=== PATIENT | male | born 1955 | race African-American/Black ===

== ENCOUNTER → 2017-04-14 | Outpatient (CLI) | payer BC ==
[~2017-04-14] VITALS: Ht 165.1 cm; Wt 82.1 kg
[~2017-04-14] MED LIST: ADENOSINE 69 MG in GIVE UN-DILUTED 0 ML IV ONE; ADENOSINE 90 MG/30 ML INJ IV ONE; AML5T PO; ASP325EC PO; CLON0.1T PO; FINA5TAB4 PO; INSLANTI SC; LABE100T PO; LISI-33 PO; LOSA100T22 PO; METF-372 PO; POTA20TA53 PO; PRAS10TA6 PO; RANI-185 PO; ROSU20TA14 PO; TAM04C PO
== END | disposition home or self-care (01) ==
LOC: Rad HDHVI 13:59
PROVIDERS: ATTEND Internal Medicine Cardiovascular Disease
DX: I10 Essential (primary) hypertension (principal); I25.10 Atherosclerotic heart disease of native coronary artery without angina pectoris; I25.2 Old myocardial infarction; E78.00 Pure hypercholesterolemia, unspecified; R53.81 Other malaise
CPT/HCPCS: 78452; 93005; 96374; 96375; A9500; J0153

== ENCOUNTER → 2018-09-12 | Outpatient (CLI) | payer BC, MEDICARE ==
[~2018-09-12] MED LIST changes: -ADENOSINE 69 MG in GIVE UN-DILUTED 0 ML IV ONE; -ADENOSINE 90 MG/30 ML INJ IV ONE; +FLUT1INH6 IN; +INSDRIP SC; +INSU1INJ19 SC; -LABE100T PO; +LABE100T4 PO; +LINA5TAB PO; +NITR0.4S29 SL; +RANO500T2 PO
[2018-09-12 09:18] VITALS: BP 151/111
[2018-09-12 09:49] VITALS: BP 148/100
[2018-09-12 12:04] LABS: Basophils # (auto) 0.1 uL; Basophils % (auto) 0.8 % (0.0-2.0); Eosinophils # (auto) 0.1 uL; Hematocrit 46.9 % (41.0-53.0); Hemoglobin 15.7 g/dL (13.5-17.5); Lymphocytes # (auto) 2.2 uL; Lymphocytes % (auto) 25.5 % (10.0-50.0); Mean Corpuscular Hemoglobin 31.6 pg (28.0-32.0); Mean Corpuscular Hgb Conc. 33.4 g/dL (32.0-36.0); Mean Corpuscular Volume 94.6 fL (80.0-100.0); Monocytes % (auto) 11.4 % (0.0-12.0); Neutrophils # (auto) 5.4 uL; Neutrophils % (auto) 61.3 % (37.0-80.0); Nucleated Red Blood Cells % 0.5 %; Platelet Count (auto) 365 10^3/uL (140-450); Red Blood Cells 4.96 10^6/uL (4.5-5.90); Red Cell Distribution Width 14.2 % (11.8-14.3); White Blood Cell 8.8 10^3/uL (4.4-10.8)
[2018-09-12 12:16] LABS: INR 0.99 (0.9-1.15); Partial Thromboplastin Time 29.6 sec (23.78-33.04); Prothrombin Time 10.6 sec (9.27-12.13)
[2018-09-12 12:18] LABS: BUN/Creatinine Ratio 13.1; Calcium 9.2 mg/dL (8.5-10.1)
== END | disposition home or self-care (01) ==
LOC: Rad HDHVI 09:06
PROVIDERS: ATTEND Internal Medicine Cardiovascular Disease
DX: Z01.818 Encounter for other preprocedural examination (principal); I70.0 Atherosclerosis of aorta; A69.29 Other conditions associated with Lyme disease; D64.9 Anemia, unspecified; R79.1 Abnormal coagulation profile; I10 Essential (primary) hypertension
CPT/HCPCS: 36415; 71046; 80048; 85025; 85610; 85730; 93005; G0463

== ENCOUNTER 2018-09-25 12:04 | Inpatient (IN) | payer BC, MEDICARE ==
[~2018-09-25] VITALS: Ht 157.5 cm; Wt 86.6 kg
[2018-09-25] MEDS: FINASTERIDE 5 MG TAB PO SCH (10:00)
[~2018-09-25 12:04] MED LIST changes: -INSLANTI SC; -ROSU20TA14 PO
[2018-09-25] MEDS ORDERED: ANGIOMAX 250 MG VIAL IV ONE (13:27)
[2018-09-25] MEDS ORDERED: SODIUM CHL 0.9% 50 ML ONE (13:27)
[2018-09-25] MEDS ORDERED: fentaNYL CITRATE 100 MCG/2 ML VL ONE (13:27)
[2018-09-25] MEDS ORDERED: MIDAZOLAM HCL 1MG/1ML-2 ML VIAL ONE (13:27)
[2018-09-25] MEDS ORDERED: ASPirin 81 mg TAB ONE (14:26)
[2018-09-25] MEDS ORDERED: SODIUM CHLORIDE 0.9% 1,000 ML IV SCH (14:43)
[2018-09-25] MEDS ORDERED: MORPHINE SULFATE 4 MG/ML SYR/VIAL IV PRN (14:45)
[2018-09-25] MEDS ORDERED: hydrALAZINE HCL 20 MG/ML VL IV PRN (14:45)
[2018-09-25] MEDS ORDERED: HYDROcodone-ACET 5/325MG TAB PO PRN (14:45)
[2018-09-25] MEDS ORDERED: NITROGLYCERIN 0.4 MG SL TAB SL PRN (14:45)
[2018-09-25] MEDS ORDERED: ACETAMINOPHEN 500 MG TAB PO PRN (14:45)
[2018-09-25] MEDS ORDERED: DEXTROSE (50%) 50ML SYRG IV PRN (14:45)
[2018-09-25] MEDS ORDERED: LOSARTAN POTASSIUM 50 MG TAB PO ONE (15:15)
[2018-09-25] MEDS ORDERED: FAMOTIDINE 20 MG TAB PO ONE (15:15)
[2018-09-25] MEDS ORDERED: ZOLPIDEM TARTRATE 5 MG TAB PO PRN (15:15)
[2018-09-25] MEDS ORDERED: ASPirin-EC 325mg tab PO ONE (15:15)
[2018-09-25] MEDS ORDERED: amLODIPine BESYLATE 5 MG TAB PO ONE (15:15)
[2018-09-25] MEDS ORDERED: RANOLAZINE ER 500 MG TAB PO ONE (15:15)
[2018-09-25] MEDS ORDERED: cloNIDine HCL 0.1 MG TAB PO ONE (15:15)
[2018-09-25] MEDS: ACCU-CHEK COMFORT CURVE STRIP VI SCH ×2 (17:00→21:50)
[2018-09-25] MEDS: InsuLIN REG 1unit/0.01ml Soln (100units/ml) SC SCH (17:48)
[2018-09-25] MEDS: LABETALOL HCL 200 MG TAB PO SCH ×2 (17:49→21:46)
[2018-09-25] MEDS: RANOLAZINE ER 500 MG TAB PO SCH (21:45)
[2018-09-25] MEDS: FAMOTIDINE 20 MG TAB PO SCH (21:46)
[2018-09-25 22:00] VITALS: BP 146/84
[2018-09-25] MEDS ORDERED: InsuLIN REG 1unit/0.01ml Soln (100units/ml) SC SCH (22:00)
[2018-09-25] MEDS ORDERED: INSULIN LANTUS (GLARGINE) 1 /0.01ml (100units/ml) SC SCH (22:00)
[2018-09-25] MEDS ORDERED: TAMSULOSIN HYDROCHLORIDE 0.4 MG CAP PO SCH (22:00)
[2018-09-26 05:00] VITALS: BP 150/91
[2018-09-26] MEDS: LABETALOL HCL 200 MG TAB PO SCH ×2 (05:52→14:00)
[2018-09-26] MEDS: InsuLIN REG 1unit/0.01ml Soln (100units/ml) SC SCH ×3 (06:02→17:00)
[2018-09-26] MEDS: ACCU-CHEK COMFORT CURVE STRIP VI SCH ×3 (06:03→17:00)
[2018-09-26] MEDS ORDERED: VILANTEROL IN SCH (07:00)
[2018-09-26] MEDS ORDERED: FLUTICASONE FUROATE IN SCH (07:00)
[2018-09-26 07:17] LABS: Basophils # (auto) 0.1 uL; Eosinophils # (auto) 0.1 uL; Eosinophils % (auto) 1.5 % (0.0-7.0); Hemoglobin 14.4 g/dL (13.5-17.5); Lymphocytes # (auto) 2.3 uL; Lymphocytes % (auto) 30.2 % (10.0-50.0); Mean Corpuscular Hgb Conc. 34.3 g/dL (32.0-36.0); Mean Corpuscular Volume 93.2 fL (80.0-100.0); Monocytes % (auto) 12.7 % (0.0-12.0); Neutrophils # (auto) 4.2 uL; Neutrophils % (auto) 54.6 % (37.0-80.0); Nucleated Red Blood Cells % 0.2 %; Platelet Count (auto) 243 10^3/uL (140-450); Red Cell Distribution Width 14.1 % (11.8-14.3); White Blood Cell 7.6 10^3/uL (4.4-10.8)
[2018-09-26 07:26] LABS: BUN/Creatinine Ratio 11.5; Calcium 8.3 mg/dL (8.5-10.1); Potassium 3.9 mmol/L (3.5-5.1)
[2018-09-26] MEDS: FAMOTIDINE 20 MG TAB PO SCH (08:42)
[2018-09-26] MEDS: FINASTERIDE 5 MG TAB PO SCH (08:42)
[2018-09-26 09:00] VITALS: BP 160/94
[2018-09-26] MEDS ORDERED: amLODIPine BESYLATE 5 MG TAB PO SCH (10:00)
[2018-09-26] MEDS: RANOLAZINE ER 500 MG TAB PO SCH (10:00)
[2018-09-26] MEDS ORDERED: LOSARTAN POTASSIUM 50 MG TAB PO SCH (10:00)
[2018-09-26] MEDS ORDERED: cloNIDine HCL 0.1 MG TAB PO SCH (10:00)
[2018-09-26] MEDS ORDERED: ASPirin-EC 325mg tab PO SCH (10:00)
[2018-09-26 13:00] VITALS: BP 160/92
[2018-09-26 17:00] VITALS: BP 159/96
== END 2018-09-26 18:45 | disposition home or self-care (01) | DRG 247 ==
LOC: CATH 12:04 → TELE-WESTW 17:04
PROVIDERS: ADMIT Internal Medicine Cardiovascular Disease; ATTEND Internal Medicine Cardiovascular Disease
PROC: 4A023N7 Measurement of Cardiac Sampling and Pressure, Left Heart, Percutaneous Approach (ICD-10-PCS; principal; 2018-09-26)
PROC: 027034Z Dilation of Coronary Artery, One Artery with Drug-eluting Intraluminal Device, Percutaneous Approach (ICD-10-PCS; 2018-09-26)
PROC: B2111ZZ Fluoroscopy of Multiple Coronary Arteries using Low Osmolar Contrast (ICD-10-PCS; 2018-09-26)
PROC: B2151ZZ Fluoroscopy of Left Heart using Low Osmolar Contrast (ICD-10-PCS; 2018-09-26)
DX: I25.110 Atherosclerotic heart disease of native coronary artery with unstable angina pectoris (principal); I10 Essential (primary) hypertension; Z82.49 Family history of ischemic heart disease and other diseases of the circulatory system; Z95.5 Presence of coronary angioplasty implant and graft
CPT/HCPCS: 36415; 80048; 82962; 85025; 99152; A6257; C1874; G0378; J1815; J2250

== ENCOUNTER → 2019-01-02 | Outpatient (CLI) | payer BC, MEDICARE ==
[~2019-01-02] MED LIST changes: -PRAS10TA6 PO
== END | disposition home or self-care (01) ==
LOC: Rad HDHVI 13:54
PROVIDERS: ATTEND Internal Medicine Cardiovascular Disease
DX: I07.1 Rheumatic tricuspid insufficiency (principal); I20.0 Unstable angina
CPT/HCPCS: 93306

== ENCOUNTER → 2019-01-08 | Outpatient (CLI) | payer BC, MEDICARE ==
[~2019-01-08] VITALS: Ht 162.6 cm; Wt 81.6 kg
[~2019-01-08] MED LIST changes: +ADENOSINE 69 MG in GIVE UN-DILUTED 0 ML IV ONE; +ADENOSINE 90 MG/30 ML INJ IV ONE
== END | disposition home or self-care (01) ==
LOC: Rad HDHVI 13:15
PROVIDERS: ATTEND Internal Medicine Cardiovascular Disease
DX: R07.89 Other chest pain (principal); E78.00 Pure hypercholesterolemia, unspecified; E11.9 Type 2 diabetes mellitus without complications; R06.02 Shortness of breath; Z79.899 Other long term (current) drug therapy
CPT/HCPCS: 78452; 93005; 96374; 96375; A9500; J0153

== ENCOUNTER → 2019-02-07 | Outpatient (CLI) | payer BC, MEDICARE ==
[~2019-02-07] MED LIST changes: -ADENOSINE 69 MG in GIVE UN-DILUTED 0 ML IV ONE; -ADENOSINE 90 MG/30 ML INJ IV ONE
== END | disposition home or self-care (01) ==
LOC: Rad HDHVI 14:56
PROVIDERS: ATTEND Internal Medicine Cardiovascular Disease
DX: M11.262 Other chondrocalcinosis, left knee (principal); M17.12 Unilateral primary osteoarthritis, left knee; I70.202 Unspecified atherosclerosis of native arteries of extremities, left leg; E11.9 Type 2 diabetes mellitus without complications; Z79.899 Other long term (current) drug therapy; Z88.8 Allergy status to other drugs, medicaments and biological substances
CPT/HCPCS: 73700

== ENCOUNTER → 2020-05-09 | Outpatient (CLI) | payer BC, MEDICARE ==
[~2020-05-09] MED LIST changes: +POTA-220 PO; -POTA20TA53 PO
== END | disposition home or self-care (01) ==
LOC: Rad HDHVI 13:42
PROVIDERS: ATTEND Internal Medicine Cardiovascular Disease
DX: I10 Essential (primary) hypertension (principal); I25.10 Atherosclerotic heart disease of native coronary artery without angina pectoris; E11.9 Type 2 diabetes mellitus without complications; R07.89 Other chest pain
CPT/HCPCS: 93306

== ENCOUNTER → 2020-07-02 | Outpatient (CLI) | payer BC, MEDICARE ==
[~2020-07-02] VITALS: Ht 160 cm; Wt 73.5 kg
== END | disposition home or self-care (01) ==
LOC: Rad HDHVI 12:41
PROVIDERS: ATTEND Internal Medicine Cardiovascular Disease
DX: I10 Essential (primary) hypertension (principal); E11.9 Type 2 diabetes mellitus without complications; E78.00 Pure hypercholesterolemia, unspecified; E78.5 Hyperlipidemia, unspecified; I25.2 Old myocardial infarction
CPT/HCPCS: 78452; 93017; 96374; A9500

== ENCOUNTER → 2020-08-14 | Outpatient (CLI) | payer BC, MEDICARE ==
[2020-08-14 12:00] LABS: Basophils # (auto) 0 10 ^3/uL (0-0.2); Basophils % (auto) 0.3 % (0.0-2.0); Eosinophils # (auto) 0.1 10 ^3/uL (0-0.8); Eosinophils % (auto) 0.6 % (0.0-7.0); Hematocrit 43.7 % (41.0-53.0); Hemoglobin 14.9 g/dL (13.5-17.5); Lymphocytes # (auto) 2.4 10 ^3/uL (0.4-5.4); Lymphocytes % (auto) 23.1 % (10.0-50.0); Mean Corpuscular Hemoglobin 33.3 pg (28.0-32.0); Monocytes # (auto) 1.2 10 ^3/uL (0-1.3); Monocytes % (auto) 11.3 % (0.0-12.0); Neutrophils # (auto) 6.6 10 ^3/uL (1.6-8.6); Neutrophils % (auto) 64.7 % (37.0-80.0); Platelet Count (auto) 370 10^3/uL (140-450); Red Blood Cells 4.46 10^6/uL (4.5-5.90); Red Cell Distribution Width 14.3 % (11.8-14.3); White Blood Cell 10.2 10^3/uL (4.4-10.8)
[2020-08-14 12:01] LABS: Urine Blood Negative /uL (Negative); Urine Specific Gravity 1.022 (1.001-1.035)
[2020-08-14 12:12] LABS: Albumin 3.6 g/dL (3.4-5.0); Potassium 3.9 mmol/L (3.5-5.1)
[2020-08-14 12:16] LABS: Free T4 (Free Thyroxine) 0.79 ng/dL (0.89-1.76)
[2020-08-14 12:17] LABS: Prostate Specific Antigen 0.9 ng/mL (0.0-4.0)
[2020-08-14 12:21] LABS: Bilirubin, Total 0.4 mg/dL (0.2-1.0); Calcium 9.4 mg/dL (8.5-10.1); Total Protein 7.6 g/dL (6.4-8.2)
== END | disposition home or self-care (01) ==
LOC: LAB 08:23
PROVIDERS: ATTEND Internal Medicine Cardiovascular Disease
DX: C61 Malignant neoplasm of prostate (principal); D51.3 Other dietary vitamin B12 deficiency anemia; D64.9 Anemia, unspecified; I10 Essential (primary) hypertension; E11.9 Type 2 diabetes mellitus without complications; E55.9 Vitamin D deficiency, unspecified; R00.2 Palpitations; R53.1 Weakness; R30.0 Dysuria
CPT/HCPCS: 36415; 80053; 80061; 81003; 82306; 82607; 83036; 84153; 84403; 84439; 84443; 85025

== ENCOUNTER 2021-03-23 16:25 | Emergency (ER) | payer BC, MEDICARE ==
[~2021-03-23] VITALS: Ht 160 cm; Wt 70.3 kg
[2021-03-23] MEDS ORDERED: SODIUM CHLORIDE 0.9% 1,000 ML IV ONE ×2 (16:45)
[2021-03-23 17:08] LABS: Basophils # (auto) 0.1 10 ^3/uL (0-0.2); Basophils % (auto) 0.7 % (0.0-2.0); Eosinophils # (auto) 0 10 ^3/uL (0-0.8); Eosinophils % (auto) 0.3 % (0.0-7.0); Hematocrit 41.1 % (41.0-53.0); Hemoglobin 13.8 g/dL (13.5-17.5); Lymphocytes # (auto) 1.7 10 ^3/uL (0.4-5.4); Lymphocytes % (auto) 15.6 % (10.0-50.0); Mean Corpuscular Hgb Conc. 33.7 g/dL (32.0-36.0); Monocytes # (auto) 1.3 10 ^3/uL (0-1.3); Monocytes % (auto) 11.6 % (0.0-12.0); Neutrophils % (auto) 71.8 % (37.0-80.0); Platelet Count (auto) 337 10^3/uL (140-450); Red Blood Cells 4.33 10^6/uL (4.5-5.90); Red Cell Distribution Width 14.2 % (11.8-14.3); White Blood Cell 11.2 10^3/uL (4.4-10.8)
[2021-03-23 17:24] LABS: Albumin 3.4 g/dL (3.4-5.0); BUN/Creatinine Ratio 16.3; Calcium 8.4 mg/dL (8.5-10.1); Potassium 3.4 mmol/L (3.5-5.1)
[2021-03-23 17:29] LABS: Bilirubin, Total 0.3 mg/dL (0.2-1.0); INR 1.02 (0.9-1.15); Partial Thromboplastin Time 23.8 sec (23.0-31.2)
[2021-03-23 20:42] LABS: Urine Bacteria NONE SEEN /hpf (None Seen); Urine Blood Negative /uL (Negative); Urine Hyaline Cast FEW /lpf (0 - 2); Urine Mucus FEW (None Seen); Urine Specific Gravity 1.013 (1.001-1.035); Urine WBC <1 /hpf (0 - 3)
[2021-03-23 21:00] VITALS: BP 148/85
[2021-03-23] MEDS ORDERED: POTASSIUM CHL 20 Meq TABLET PO ONE (21:15)
== END 2021-03-23 21:52 | disposition home or self-care (01) ==
LOC: EDBD 16:25 → ER 16:25
DX: R55 Syncope and collapse (principal); E86.0 Dehydration; R77.8 Other specified abnormalities of plasma proteins; I10 Essential (primary) hypertension; I25.2 Old myocardial infarction; I25.10 Atherosclerotic heart disease of native coronary artery without angina pectoris; F17.210 Nicotine dependence, cigarettes, uncomplicated; Z79.4 Long term (current) use of insulin; Z79.82 Long term (current) use of aspirin; Z79.899 Other long term (current) drug therapy
CPT/HCPCS: 36415; 70450; 71045; 80053; 81001; 84484; 85025; 85610; 85730; 87426; 93005; 96360; 96361; 99285; J7030

== ENCOUNTER → 2021-05-08 | Outpatient (CLI) | payer BC, MEDICARE | END | disposition home or self-care (01) | LOC: Rad HDHVI 09:51 | PROVIDERS: ATTEND Internal Medicine Cardiovascular Disease | DX: I10 Essential (primary) hypertension (principal); R06.02 Shortness of breath | CPT/HCPCS: 93306 ==

== ENCOUNTER → 2021-05-13 | Outpatient (CLI) | payer BC, MEDICARE | END | disposition home or self-care (01) | LOC: Rad HDHVI 10:09 | PROVIDERS: ATTEND Internal Medicine Cardiovascular Disease | DX: I65.23 Occlusion and stenosis of bilateral carotid arteries (principal); I10 Essential (primary) hypertension; E78.5 Hyperlipidemia, unspecified | CPT/HCPCS: 93880 ==

== ENCOUNTER → 2021-05-25 | Outpatient (CLI) | payer BC, MEDICARE ==
[~2021-05-25] VITALS: Ht 160 cm; Wt 69.4 kg
[~2021-05-25] MED LIST changes: +ADENOSINE 58 MG in GIVE UN-DILUTED 0 ML IV ONE; +ADENOSINE 90 MG/30 ML INJ IV ONE
[2021-05-25 14:00] LABS: Urine Blood Negative /uL (Negative); Urine Specific Gravity 1.025 (1.001-1.035)
[2021-05-25 14:35] LABS: Free T4 (Free Thyroxine) 0.89 ng/dL (0.89-1.76); Prostate Specific Antigen 0.82 ng/mL (0.0-4.0)
[2021-05-25 14:37] LABS: Potassium 3.6 mmol/L (3.5-5.1)
[2021-05-25 14:43] LABS: Basophils # (auto) 0 10 ^3/uL (0-0.2); Basophils % (auto) 0.3 % (0.0-2.0); Eosinophils # (auto) 0.1 10 ^3/uL (0-0.8); Eosinophils % (auto) 1.2 % (0.0-7.0); Hematocrit 42.5 % (41.0-53.0); Hemoglobin 14.5 g/dL (13.5-17.5); Lymphocytes # (auto) 1.9 10 ^3/uL (0.4-5.4); Mean Corpuscular Hemoglobin 32.8 pg (28.0-32.0); Mean Corpuscular Hgb Conc. 34.2 g/dL (32.0-36.0); Mean Corpuscular Volume 95.9 fL (80.0-100.0); Monocytes % (auto) 12.1 % (0.0-12.0); Neutrophils # (auto) 5.1 10 ^3/uL (1.6-8.6); Neutrophils % (auto) 63.4 % (37.0-80.0); Nucleated Red Blood Cells % 0.1 %; Red Blood Cells 4.43 10^6/uL (4.5-5.90); Red Cell Distribution Width 13.9 % (11.8-14.3); White Blood Cell 8.1 10^3/uL (4.4-10.8)
[2021-05-25 14:44] LABS: Albumin 3.6 g/dL (3.4-5.0); BUN/Creatinine Ratio 12.8; Bilirubin, Total 0.4 mg/dL (0.2-1.0); Calcium 9.3 mg/dL (8.5-10.1); Total Protein 7.9 g/dL (6.4-8.2)
== END | disposition home or self-care (01) ==
LOC: Rad HDHVI 08:40
PROVIDERS: ATTEND Internal Medicine Cardiovascular Disease
DX: C61 Malignant neoplasm of prostate (principal); I11.0 Hypertensive heart disease with heart failure; I50.33 Acute on chronic diastolic (congestive) heart failure; D51.3 Other dietary vitamin B12 deficiency anemia; E11.9 Type 2 diabetes mellitus without complications; E55.9 Vitamin D deficiency, unspecified; D64.9 Anemia, unspecified; R00.2 Palpitations; R53.1 Weakness; R30.0 Dysuria; E78.5 Hyperlipidemia, unspecified
CPT/HCPCS: 36415; 78452; 80053; 80061; 81003; 82306; 82607; 83036; 84153; 84403; 84439; 84443; 85025; 85049; 93005; 96374; 96375; A9500; J0153

== ENCOUNTER → 2022-05-12 | Outpatient (CLI) | payer BC, MEDICARE ==
[~2022-05-12] MED LIST changes: -ADENOSINE 58 MG in GIVE UN-DILUTED 0 ML IV ONE; -ADENOSINE 90 MG/30 ML INJ IV ONE
== END | disposition home or self-care (01) ==
LOC: Rad HDHVI 08:38
PROVIDERS: ATTEND Internal Medicine Cardiovascular Disease
DX: I35.8 Other nonrheumatic aortic valve disorders (principal); R06.02 Shortness of breath; I10 Essential (primary) hypertension
CPT/HCPCS: 93306

== ENCOUNTER → 2023-06-24 | Outpatient (CLI) | payer BC, MEDICARE ==
[~2023-06-24] MED LIST changes: +LOSA100T13 PO; -LOSA100T22 PO; -TAM04C PO; +TAMS-35 PO
== END | disposition home or self-care (01) ==
LOC: Rad HDHVI 08:54
PROVIDERS: ATTEND Internal Medicine Cardiovascular Disease
DX: I08.2 Rheumatic disorders of both aortic and tricuspid valves (principal); I11.9 Hypertensive heart disease without heart failure
CPT/HCPCS: 93306

== ENCOUNTER → 2023-07-25 | Outpatient (CLI) | payer BC, MEDICARE ==
[~2023-07-25] VITALS: Ht 160 cm; Wt 72.6 kg
[~2023-07-25] MED LIST changes: +ADENOSINE 61 MG in GIVE UN-DILUTED 0 ML IV ONE; +ADENOSINE 90 MG/30 ML INJ IV ONE
== END | disposition home or self-care (01) ==
LOC: Rad HDHVI 10:00
PROVIDERS: ATTEND Internal Medicine Cardiovascular Disease
DX: I10 Essential (primary) hypertension (principal); I20.0 Unstable angina; I25.2 Old myocardial infarction; E78.00 Pure hypercholesterolemia, unspecified; E11.21 Type 2 diabetes mellitus with diabetic nephropathy; Z95.1 Presence of aortocoronary bypass graft
CPT/HCPCS: 78452; 93005; 96374; 96375; A9500; J0153

== ENCOUNTER → 2024-06-26 | Outpatient (CLI) | payer BC ==
[~2024-06-26] MED LIST changes: -ADENOSINE 61 MG in GIVE UN-DILUTED 0 ML IV ONE; -ADENOSINE 90 MG/30 ML INJ IV ONE; -LABE100T4 PO; +LABE100T7 PO; -LOSA100T13 PO; +LOSA100T14 PO
== END | disposition home or self-care (01) ==
LOC: Rad HDHVI 08:04
PROVIDERS: ATTEND Internal Medicine Cardiovascular Disease
DX: I08.2 Rheumatic disorders of both aortic and tricuspid valves (principal); R42 Dizziness and giddiness
CPT/HCPCS: 93306

== ENCOUNTER → 2024-06-27 | Outpatient (CLI) | payer BC ==
[~2024-06-27] VITALS: Ht 162.6 cm; Wt 72.6 kg
[~2024-06-27] MED LIST changes: +D5W 5% IV ONE; +DIPYRIDAMOLE (5MG/ML) 10 ML VIAL IV ONE; +DIPYRIDAMOLE IV ONE
== END | disposition home or self-care (01) ==
LOC: Rad HDHVI 08:33
PROVIDERS: ATTEND Internal Medicine Cardiovascular Disease
DX: I10 Essential (primary) hypertension (principal); I42.0 Dilated cardiomyopathy; E11.9 Type 2 diabetes mellitus without complications; I51.7 Cardiomegaly; E78.00 Pure hypercholesterolemia, unspecified
CPT/HCPCS: 78452; 93005; 96374; 96375; A9500; J1245

== ENCOUNTER → 2024-12-05 | Outpatient (CLI) | payer BC, MEDICARE ==
[~2024-12-05] MED LIST changes: +AMLO1TAB22 PO; +ASPI1TAB20 PO; -D5W 5% IV ONE; +DAPA1TAB4 PO; -DIPYRIDAMOLE (5MG/ML) 10 ML VIAL IV ONE; -DIPYRIDAMOLE IV ONE; +ESOM20CA PO; +FLUT100I IN; +GABA-339 PO; +HEPARIN IN NS 1000Units/500mL 1,500 ML ONE; +INSLANTI SC; +IOHEXOL 350 MG/ML 100ML IJ ONE; +LOSA-535 PO; +PRAS10TA8 PO; +RANO500T3 PO; +ROSU10TA16 PO; +TAMS0.4C39 PO; +TIOT1AER IN; +ZOLP10TA PO
[2024-12-05 10:00] VITALS: BP 148/85; PULSE 81; RESP 16; O2SAT 97
[2024-12-05 10:11] VITALS: BP 148/79; PULSE 81; RESP 18; O2SAT 99
--- NOTE | 2024-12-05 11:40 | DVH ---
EXAM: XY CHEST TWO VIEWS ROUTINE CLINICAL HISTORY: pain COMPARISON: None TECHNIQUE: Frontal and lateral view of the chest was obtained FINDINGS: Lines and Tubes: None Lungs: No focal consolidation. Pleura: No effusion. No pneumothorax. Cardiomediastinal contours: Unremarkable. Atherosclerotic vascular calcifications of the thoracic aor ta are noted. Bones: No acute osseous abnormality. IMPRESSION: No acute cardiopulmonary disease.
== END | disposition home or self-care (01) ==
LOC: Rad HDHVI 09:56
PROVIDERS: ATTEND Internal Medicine Cardiovascular Disease
DX: Z01.818 Encounter for other preprocedural examination (principal); I70.0 Atherosclerosis of aorta; R07.9 Chest pain, unspecified
CPT/HCPCS: 71046; 93005; G0463

== ENCOUNTER 2024-12-06 08:51 | Day surgery (SDC) | payer BC, MEDICARE ==
[2024-12-05 12:26] LABS: Basophils # (auto) 0.1 10 ^3/uL (0-0.2); Basophils % (auto) 0.9 % (0.0-2.0); Eosinophils # (auto) 0.1 10 ^3/uL (0-0.8); Eosinophils % (auto) 0.6 % (0.0-7.0); Hematocrit 46.5 % (41.0-53.0); Hemoglobin 15.9 g/dL (13.5-17.5); Lymphocytes # (auto) 2.2 10 ^3/uL (0.4-5.4); Lymphocytes % (auto) 20.3 % (10.0-50.0); Mean Corpuscular Hgb Conc. 34.2 g/dL (32.0-36.0); Mean Corpuscular Volume 93.5 fL (80.0-100.0); Monocytes % (auto) 8.8 % (0.0-12.0); Neutrophils # (auto) 7.5 10 ^3/uL (1.6-8.6); Neutrophils % (auto) 69.4 % (37.0-80.0); Nucleated Red Blood Cells % 0.1 %; Platelet Count (auto) 252 10^3/uL (140-450); Red Blood Cells 4.97 10^6/uL (4.5-5.90); Red Cell Distribution Width 15.6 % (11.8-14.3); White Blood Cell 10.9 10^3/uL (4.4-10.8)
[2024-12-05 12:38] LABS: INR 1.04 (0.9-1.15); Partial Thromboplastin Time 28.6 SEC (24.5-34.5)
[2024-12-05 12:57] LABS: Chloride 105 mmol/L (98-107); Sodium 138 mmol/L (136-145)
[2024-12-05 12:58] LABS: Anion Gap 7 (5-15); Calcium 10.3 mg/dL (8.7-10.4); Carbon Dioxide 26 mmol/L (20-31)
[2024-12-05 13:03] LABS: Blood Urea Nitrogen 11 mg/dL (9-23); Glucose 94 mg/dL (74-106)
[2024-12-06] VITALS (9 sets, daily range): BP systolic 120–150; BP diastolic 77–88; PULSE 66–86; RESP 12–24; O2SAT 96–100
[~2024-12-06] VITALS: Ht 160 cm; Wt 76.7 kg
[~2024-12-06 08:51] MED LIST changes: -AML5T PO; -ASP325EC PO; -FLUT1INH6 IN; -HEPARIN IN NS 1000Units/500mL 1,500 ML ONE; -INSDRIP SC; -INSU1INJ19 SC; -IOHEXOL 350 MG/ML 100ML IJ ONE; -LISI-33 PO; -LOSA100T14 PO; -METF-372 PO; -POTA-220 PO; -RANI-185 PO; -RANO500T2 PO; -TAMS-35 PO
[2024-12-06] MEDS ORDERED: LIDOCAINE 2%HCL (LOCAL ANESTH.) INJ 20ML MDV ONE (09:37)
[2024-12-06] MEDS ORDERED: fentaNYL CITRATE 100 MCG/2 ML VL ONE (09:46)
[2024-12-06] MEDS ORDERED: ANGIOMAX 250 MG VIAL IV ONE ×2 (09:46→11:39)
[2024-12-06] MEDS ORDERED: MIDAZOLAM HCL 2MG/2ML 2ml VIAL (1mg/ml) ONE (09:47)
[2024-12-06] MEDS ORDERED: SODIUM CHL 0.9% 50 ML ONE ×2 (09:47→11:39)
[2024-12-06] MEDS ORDERED: NITROGLYCERIN 0.4MG/DOSE SPRAY 4.9GM ONE (10:54)
[2024-12-06] MEDS ORDERED: IOHEXOL 350 MG/ML 100ML IJ ONE (11:27)
[2024-12-06] MEDS ORDERED: CLOPIDOGREL BISULFATE 75 MG TAB ONE (11:54)
--- NOTE | 2024-12-06 12:12 | DVHOP ---
DATE OF SURGERY: 12/06/2024 PROCEDURES PERFORMED: * Selective left and right coronary angiography. * Ventriculogram. * Right iliac angiography. * Thrombectomy with shockwave treatment of the distal left anterior descending artery with stent placement, a 2.5 x 15 and a 2.5 x 8 mm Jonathon Cabell stent. * Angioplasty, shockwave thrombectomy of the obtuse marginal 1 with stent placement with a 2.5 x 12 mm Jonathon Cabell stent. There were no complications. The patient tolerated the procedure well. Conscious sedation was also given to the patient. DESCRIPTION OF PROCEDURE: The patient was prepped and draped in a sterile condition. Then, 1% Xylocaine used to anesthetize the right groin. Using a Cook needle, right femoral artery was engaged with Seldinger technique. A guidewire was positioned. Using a 6-Angolan sheath, it was introduced in the right femoral artery. Using 6-Angolan JL4 catheter and 6-Angolan JR4 catheter, selective left and right coronary angiographies were performed. Using 6-Angolan pigtail catheter, ventriculogram was done. Following the angiogram, the patient had a 6-Angolan diagnostic system exchanged for a 6-Angolan interventional system. Using an XB 3.5 guide catheter, left main was cannulated. Using a ChoICE PT extra support wire, the left anterior descending artery was crossed all the way into the distal portion just beyond the crux. The patient had high 95% narrowing of the distal LAD just distal to the previous stent placement. The lesion, because of tortuosity and calcification, was thrombectomized. Then, shockwave treatment with a 2.5 x 12 mm shockwave balloon. Then, 2 sequential stents were placed, 2.5 x 15 and a 2.5 x 8 mm stents were placed in the distal segment of the LAD just at the level of the crux. There were no complications. The patient tolerated the procedure well. Then, 2 run through wires were placed into the obtuse marginal 1. It had previous stent as well that was patent. However, distal to the stent, there was a 90% heavily calcified lesion. The patient underwent thrombectomy with shockwave treatment as well with a 2.5 x 12 mm shockwave balloon. Following the thrombectomy, the patient had deployment of 2.5 x 12 mm [place] Cabell stent. Two wires were placed to give additional support because of tortuosity of the circumflex. Once again, there were no complications. The patient tolerated the procedure well. RESULTS: * Left main distally had a 50% narrowing extending into the left anterior descending artery and the circumflex artery. The patient will require intervention in a staged manner with next procedure on him. * Left anterior descending artery had a proximal stent placement, which was patent, but distal LAD had a 95%-99% stenosis, status post angioplasty with thrombectomy with stent placement with a 2.5 x 15 and a 2.5 x 8 mm Jonathon stent. * Circumflex artery had previous stent placement, also was patent; however, distal to the stent placement, the patient had a 90% narrowing. Underwent successful angioplasty with stent placement. Remember, the left main extends into the circumflex and left anterior descending artery, both with greater than 60%-70% narrowing that will require kissing technique and angioplasty with stent placement of the left main at a later date. * Right coronary artery nondominant vessel. However, the stent placed in the proximal segment was patent, but the mid portion of the PDA, which has about a 2 mm vessel, has a 99% narrowing that will require intervention at a later date. Left ventricular function was preserved and estimated EF around 45%-50%. No change from previous angiogram or echocardiography with an LVEDP of 20 mmHg, with no gradient across the aortic valve. Thus, the patient underwent: * Complex intervention of the left anterior descending artery distally, with two stent placement with thrombectomy and shockwave treatment. * Angioplasty with stent placement of the obtuse marginal 1 distal to the previous stent. Once again complex intervention heavily calcified with less than 10% residual stenosis. * Right coronary artery, the PDA will require further intervention at a later date and the left main has a greater than 50% narrowing extending into the left anterior descending artery and the circumflex. EF was preserved with an LVEDP of 20 mmHg with an EF of 45%. Sumit Browning MD SA/MONICA TID: [id number] RECEIPT: [id number]
--- NOTE | 2024-12-06 12:37 | DVHDS ---
DATE OF DISCHARGE: 12/06/2024 HOSPITAL COURSE: The patient underwent complex intervention of the left anterior descending artery and circumflex arteries. Previous site of stent placements were patent. However, the patient will require further intervention of the left main extending into the LAD and circumflex as well as the PDA of the right coronary artery. Those procedures will be staged at a later date. Stable at the time of discharge. DISPOSITION: Home. ACTIVITY: As instructed. DIET: The patient will be maintained on dual antiplatelet therapy. He is to continue all home medications as well. Sumit Browning MD SA/GABBY TID: [id number] RECEIPT: [id number]
--- NOTE | 2024-12-06 12:38 | DVHHP ---
ADMIT DATE: 12/06/2024 HISTORY OF PRESENT ILLNESS: The patient is a 69-year-old with history of: * Diabetes, diabetic neuropathy, vasculopathy, nephropathy. * Remote history of tobacco use, discontinued smoking some 15 years ago. Strong family history of coronary artery disease. The patient with history of coronary artery disease, history of angioplasty with stent placement in the past with a PTCA to LAD. The stent placement PTCA circumflex obtuse marginal 1 with stent placement and RCA with stent placement. The patient with a circumflex dominant system. Now, the patient is having exertional chest pain. Shortness of breath. He also has severe peripheral neuropathy. Diabetic neuropathy as well. 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 He had a cardiac arrest/appears to be maybe even CVA at that time rather than cardiopulmonary arrest at this time and all symptoms improved afterwards. He denies any renal insufficiency at time. He only has diabetic nephropathy. Denies any syncopal episode recently. No melena, hematochezia, no hematemesis, hemoptysis. REVIEW OF SYSTEMS: Denies any hematuria as well. No history of any seizure disorders. No movement disorders. PHYSICAL EXAMINATION: VITAL SIGNS: Blood pressure is 168/72, pulse of 70, O2 saturation 98% on room air. HEENT: Pupils are reactive. Funduscopic exam shows no AV nicking, no exudates, no papilledema. Sclerae are anicteric. Extraocular muscles are intact. Oral mucosa moist. Posterior pharynx without any exudates. NECK: No JVD appreciated. Carotid pulses are 2+ symmetrical and normal upstroke and contour. No cervical adenopathy, no supraclavicular adenopathy. PULMONARY: Clear to auscultation. CARDIOVASCULAR: Regular rate without S3, without S4. PMI is not displaced. ABDOMEN: Soft, nontender, obese. Unable to appreciate organomegaly. EXTREMITIES: The patient has diffuse arthritic discomfort, arthritic changes. Has knee effusion bilaterally. NEUROLOGIC: However, the patient has normal focality to his examination. ASSESSMENT AND PLAN: Thus, the patient with now ongoing exertional chest pain even with minimal exertion. The patient with previous history of angioplasty with all 3 vessels had angioplasty done with stent placement. He has 3 stents, now having exertional chest pain. The patient is now to undergo coronary angiography to define coronary anatomy. Risks and benefits were explained to the patient. Sumit Browning MD SA/JOSE/DOMENICA/DEMETRIO TID: [id number] RECEIPT: [id number]
== END 2024-12-06 16:25 | disposition home or self-care (01) ==
LOC: CATH 08:51
PROVIDERS: ATTEND Internal Medicine Cardiovascular Disease
DX: R07.89 Other chest pain (principal); I25.10 Atherosclerotic heart disease of native coronary artery without angina pectoris; I25.84 Coronary atherosclerosis due to calcified coronary lesion; R06.02 Shortness of breath; R79.1 Abnormal coagulation profile; E11.42 Type 2 diabetes mellitus with diabetic polyneuropathy; E11.21 Type 2 diabetes mellitus with diabetic nephropathy; J44.9 Chronic obstructive pulmonary disease, unspecified; F41.9 Anxiety disorder, unspecified; F12.90 Cannabis use, unspecified, uncomplicated; Z79.82 Long term (current) use of aspirin; Z86.73 Personal history of transient ischemic attack (TIA), and cerebral infarction without residual deficits; Z87.891 Personal history of nicotine dependence; Z86.74 Personal history of sudden cardiac arrest; Z95.5 Presence of coronary angioplasty implant and graft; Z82.49 Family history of ischemic heart disease and other diseases of the circulatory system; Z83.3 Family history of diabetes mellitus
CPT/HCPCS: 36415; 80048; 85025; 85610; 85730; 92972; 92973; 93458; C1725; C1760; C1769; C1874; C1887; C1894; C9600; J0583; J1644; J2250; J3010; Q9967; 99152; 99153

== ENCOUNTER → 2025-01-07 | Outpatient (CLI) | payer BC, MEDICARE ==
[2025-01-07 10:15] VITALS: BP 123/82; PULSE 61; RESP 18; O2SAT 99
[2025-01-07 10:30] VITALS: BP 129/85; PULSE 90; RESP 18; O2SAT 99
--- NOTE | 2025-01-07 13:41 | DVH ---
XY CHEST TWO VIEWS ROUTINE CLINICAL HISTORY: PRE OP/pain COMPARISON: XY CHEST TWO VIEWS ROUTINE on DOS: 12/05/24 TECHNIQUE: Frontal and lateral view of the chest was obtained FINDINGS: Lines and Tubes: None Lungs: No focal consolidation. Pleura: No effusion. No pneumothorax. Cardiomediastinal contours: Unremarkable Bones: No acute osseous abnormality. IMPRESSION: No acute cardiopulmonary disease.
== END | disposition home or self-care (01) ==
LOC: Rad HDHVI 10:05
PROVIDERS: ATTEND Internal Medicine Cardiovascular Disease
DX: Z01.818 Encounter for other preprocedural examination (principal); R07.89 Other chest pain
CPT/HCPCS: 71046; 93005; G0463

== ENCOUNTER 2025-01-10 06:56 | Day surgery (SDC) | payer BC, MEDICARE ==
[2025-01-07 13:11] LABS: Basophils # (auto) 0.1 10 ^3/uL (0-0.2); Basophils % (auto) 0.9 % (0.0-2.0); Eosinophils # (auto) 0.1 10 ^3/uL (0-0.8); Eosinophils % (auto) 0.5 % (0.0-7.0); Hematocrit 44.6 % (41.0-53.0); Hemoglobin 14.8 g/dL (13.5-17.5); Lymphocytes # (auto) 2.2 10 ^3/uL (0.4-5.4); Lymphocytes % (auto) 20.5 % (10.0-50.0); Mean Corpuscular Hemoglobin 31.3 pg (28.0-32.0); Mean Corpuscular Hgb Conc. 33.2 g/dL (32.0-36.0); Mean Corpuscular Volume 94.2 fL (80.0-100.0); Monocytes # (auto) 1.1 10 ^3/uL (0-1.3); Monocytes % (auto) 10.3 % (0.0-12.0); Neutrophils # (auto) 7.3 10 ^3/uL (1.6-8.6); Neutrophils % (auto) 67.8 % (37.0-80.0); Platelet Count (auto) 249 10^3/uL (140-450); Red Blood Cells 4.74 10^6/uL (4.5-5.90); White Blood Cell 10.8 10^3/uL (4.4-10.8)
[2025-01-07 13:27] LABS: INR 1.04 (0.9-1.15); Partial Thromboplastin Time 28.8 SEC (24.5-34.5)
[2025-01-07 13:36] LABS: Anion Gap 8 (5-15); Carbon Dioxide 27 mmol/L (20-31); Chloride 103 mmol/L (98-107); Potassium 3.8 mmol/L (3.5-5.1); Sodium 138 mmol/L (136-145)
[2025-01-07 13:37] LABS: Calcium 10.1 mg/dL (8.7-10.4)
[2025-01-07 13:42] LABS: BUN/Creatinine Ratio 7.1 (10.0-20.0); Glucose 82 mg/dL (74-106)
[2025-01-07 13:44] LABS: Blood Urea Nitrogen 7 mg/dL (9-23)
[~2025-01-10] VITALS: Ht 160 cm; Wt 76.2 kg
[~2025-01-10 06:56] MED LIST changes: -GABA-339 PO
[2025-01-10] MEDS ORDERED: IOHEXOL 350 MG/ML 100ML IJ ONE (07:47)
[2025-01-10] MEDS ORDERED: SODIUM CHL 0.9% 50 ML ONE (08:09)
[2025-01-10] MEDS ORDERED: LIDOCAINE 2%HCL (LOCAL ANESTH.) INJ 20ML MDV ONE (08:09)
[2025-01-10] MEDS ORDERED: fentaNYL CITRATE 100 MCG/2 ML VL ONE (08:09)
[2025-01-10] MEDS ORDERED: MIDAZOLAM HCL 2MG/2ML 2ml VIAL (1mg/ml) ONE (08:09)
[2025-01-10] MEDS ORDERED: IODIXANOL 320MG/ML 100ML BTL IV ONE (09:09)
--- NOTE | 2025-01-10 09:37 | DVHDS ---
DATE OF DISCHARGE: 01/10/2025 DISCHARGE DIAGNOSES: The patient underwent successful revascularization of the posterior descending artery and the distal right coronary artery with stent placement. The patient will require further intervention of the proximal and ostial left anterior descending, proximal and ostial circumflex, distal left main, distal left anterior descending at a later date. Ejection fraction is preserved. Anticoagulation will be maintained. Stable at the time of discharge. DISPOSITION: Home. ACTIVITY: As instructed. DIET: Will be 2 gram sodium diet. Sumit Browning MD SA/MONICA TID: [id number] RECEIPT: [id number]
--- NOTE | 2025-01-10 10:07 | DVHHP ---
ADMIT DATE: 01/10/2025 HISTORY OF PRESENT ILLNESS: The patient who is 69 years old with history of coronary artery disease, hypertension, diabetes, diabetic vasculopathy and neuropathy. The patient had previous angioplasty with stent placement of the LAD, previous angioplasty with stent placement of the proximal RCA. The patient now having exertional chest pain. Stress test shows diminished left ventricular ejection fraction during stress and the patient has RCA reversibility. Because of this presentation, the patient is now to undergo coronary angiography. Risks and benefits were explained to the patient. The patient understands. The patient denies any fever, chills, melena, hematochezia, bleeding diathesis, hematemesis, hemoptysis or hematuria. He has got severe osteoarthritis and periodically, the patient required cortisone injection, especially in his knee. He also has severe osteoarthritis of the lower back as well. He has accelerated hypertension, diabetes with diabetic neuropathy, vasculopathy, nephropathy. His blood sugars are still labile at times. PHYSICAL EXAMINATION: VITAL SIGNS: Blood pressure is 160/80, pulse of 74, O2 saturation 98% on room air. HEENT: Pupils are reactive. Fundoscopic exam is benign. Sclerae anicteric. No exudates noted. Tympanic membranes are negative. Oral mucosa moist. Posterior pharynx without any exudates. NECK: Supple. No nuchal rigidity appreciated. No cervical adenopathy. No supraclavicular adenopathy. He does not have any axillary adenopathy as well. Carotid pulses are 2+ symmetrical. Normal upstroke and contour. No JVD appreciated. Thyroid is within normal limits. PULMONARY: Clear to auscultation. Tympanic to percussion. No rhonchi, no wheezes. No egophony. CARDIOVASCULAR: Regular rate without S3, without S4. PMI is not displaced. ABDOMEN: Soft. Nontender. Normal bowel sound. Liver approximately 5 cm by percussion. No epigastric tenderness. No suprapubic tenderness. No CVA tenderness. NEUROLOGIC: The patient is intact. DTRs are 2+ symmetrical. Cranial nerves 2 through 12 within normal limits. Sensory and motor modalities are intact. Negative for ataxia. Negative for Babinski. Negative for pronator drift. EXTREMITIES: 1+ edema and 1+ pulses bilaterally. ASSESSMENT AND PLAN: Thus, the patient with coronary artery disease, diabetes, hypertension, hyperlipidemia, now with signs and symptom complex of angina, exertional with positive stress Cardiolite. Echocardiogram shows an EF around 50%. The patient is now to undergo left heart catheterization. RECOMMENDATIONS: Further recommendations after the angiogram. Sumit Browning MD SA/GABBY/LORENA TID: [id number] RECEIPT: [id number]
--- NOTE | 2025-01-10 10:19 | DVHOP ---
DATE OF SURGERY: 01/10/2025 PROCEDURES PERFORMED: * Selective left and right coronary angiography. * Ventriculogram. * Thrombectomy with shockwave device of the distal RCA, with a 2.5 x 12 mm thrombectomy shockwave device. * Angioplasty of the posterior descending artery with a 2.0 x 15 mm balloon. * Angioplasty with stent placement of the distal RCA with a 2.5 x 15 mm Jonathon stent. * Conscious sedation. DESCRIPTION OF PROCEDURE: The patient was prepped and draped in a sterile condition. Then, 1% Xylocaine was used to anesthetize the right groin. Using a Cook needle, the right femoral artery was engaged with Seldinger technique, a 6-Israeli sheath in the right femoral artery. Using 6-Israeli JL4 catheter and 6-Israeli JR4 catheter, selective left and right coronary angiographies were performed. Using 6-Israeli pigtail catheter, ventriculogram was done. Then, the 6-Israeli diagnostic system was exchanged for a 6-Israeli interventional system. Using 6-Israeli BIGGS guide catheter, the RCA was cannulated. Using a runthrough wire, the PDA lesion and the distal RCA lesion was then crossed. The patient had a proximal stent in the RCA that was patent. Then, the distal lesion was balloon angioplastied using a 2.0 x 15 mm Euphora balloon. The entire length of the PDA was then angioplastied. Then, a 2.5 x 12 mm thrombectomy shockwave device was used to angioplasty the distal RCA. Following that, a 2.5 x 15 mm Toney stent was then deployed across the distal RCA at 14 atmospheres. There were no complications. The patient tolerated the procedure well. RESULTS: * Left main has a distant 50% narrowing extending into the proximal LAD and circumflex. There is about a 50% narrowing of the mid circumflex that will require intervention. * Left anterior descending artery has a mid 70% narrowing and a distal 90% narrowing. * Right coronary artery has a distal 95% narrowing and the PDA has a 95% narrowing as well. The patient underwent successful revascularization of the distal RCA and the PDA as described above. The patient will require an angioplasty of the mid LAD and the distal LAD. * Angioplasty of the proximal circumflex and angioplasty of the distal left main extending into the left anterior descending artery and the circumflex artery. We will make further recommendations at a later date. It will be staged. The patient is now completely revascularized on the right coronary artery, will require revascularization of the left main, LAD and circumflex at a later date. The cath wave was used to measure the left anterior descending artery stenosis. Proximal lesion was 7.9, distal lesion was 0.7. Therefore, both lesions need to be intervened at a later date. * LV function was preserved and estimated EF of 50% with an LVEDP of 18 mmHg, with no gradient across the aortic valve. Sumit Browning MD SA/MONICA/DOMENICA TID: [id number] RECEIPT: [id number]
== END 2025-01-10 11:45 | disposition home or self-care (01) ==
LOC: CATH 06:56
PROVIDERS: ATTEND Internal Medicine Cardiovascular Disease
DX: I25.119 Atherosclerotic heart disease of native coronary artery with unspecified angina pectoris (principal); R07.9 Chest pain, unspecified; E11.40 Type 2 diabetes mellitus with diabetic neuropathy, unspecified; E78.5 Hyperlipidemia, unspecified; I10 Essential (primary) hypertension; Z95.5 Presence of coronary angioplasty implant and graft; Z79.899 Other long term (current) drug therapy; Z98.890 Other specified postprocedural states; Z88.8 Allergy status to other drugs, medicaments and biological substances
CPT/HCPCS: 0523T; 36415; 80048; 85025; 85610; 85730; 92921; 92972; 92973; 93458; C1725; C1760; C1761; C1769; C1874; C1887; C1894; C9600; J1644; J2250; J3010; Q9967; 99152; 99153

== ENCOUNTER → 2025-03-04 | Outpatient (CLI) | payer BC, MEDICARE ==
[~2025-03-04] MED LIST changes: +AML5T PO; +ASPI1TAB59 PO; +ERTU15TA PO; +GABA-1250 PO; +GABA-339 PO; +POM; +POM PO; +PRAS10TA19 PO
[2025-03-04 12:20] VITALS: BP 144/82; PULSE 76; RESP 16; O2SAT 97
[2025-03-04 12:39] VITALS: BP 142/88; PULSE 70; RESP 16; O2SAT 97
--- NOTE | 2025-03-04 13:02 | DVH ---
CHEST RADIOGRAPH Indication: Pain Technique: Frontal and lateral view of the chest was obtained Comparison: XY CHEST TWO VIEWS ROUTINE on DOS: 01/07/25, XY CHEST TWO VIEWS ROUTINE on DOS: 12/05/24 FINDINGS: Lines and Tubes: None Lungs: Clear Pleura: No effusion. No pneumothorax. Cardiomediastinal contours: Unremarkable Bones: Unremarkable IMPRESSION: No evidence of acute disease.
== END | disposition home or self-care (01) ==
LOC: Rad HDHVI 11:58
PROVIDERS: ATTEND Internal Medicine Cardiovascular Disease
DX: Z01.818 Encounter for other preprocedural examination (principal); R07.9 Chest pain, unspecified
CPT/HCPCS: 71046; G0463

== ENCOUNTER 2025-03-07 07:02 | Day surgery (SDC) | payer BC, MEDICARE ==
[2025-03-04 14:47] LABS: Basophils # (auto) 0.1 10 ^3/uL (0-0.2); Basophils % (auto) 0.9 % (0.0-2.0); Eosinophils # (auto) 0.1 10 ^3/uL (0-0.8); Eosinophils % (auto) 0.7 % (0.0-7.0); Hematocrit 46.9 % (41.0-53.0); Hemoglobin 15.5 g/dL (13.5-17.5); Lymphocytes # (auto) 2.2 10 ^3/uL (0.4-5.4); Lymphocytes % (auto) 19.3 % (10.0-50.0); Mean Corpuscular Hemoglobin 31.7 pg (28.0-32.0); Mean Corpuscular Hgb Conc. 33.1 g/dL (32.0-36.0); Mean Corpuscular Volume 95.8 fL (80.0-100.0); Monocytes % (auto) 8.6 % (0.0-12.0); Neutrophils % (auto) 70.5 % (37.0-80.0); Platelet Count (auto) 256 10^3/uL (140-450); Red Cell Distribution Width 14.5 % (11.8-14.3); White Blood Cell 11.4 10^3/uL (4.4-10.8)
[2025-03-04 15:03] LABS: INR 1.06 (0.9-1.15); Partial Thromboplastin Time 28.2 SEC (24.5-34.5); Prothrombin Time 11.2 sec (9.3-11.8)
[2025-03-04 15:15] LABS: Chloride 102 mmol/L (98-107); Potassium 4.3 mmol/L (3.5-5.1); Sodium 139 mmol/L (136-145)
[2025-03-04 15:16] LABS: Anion Gap 10 (5-15); Carbon Dioxide 27 mmol/L (20-31)
[2025-03-04 15:22] LABS: Blood Urea Nitrogen 12 mg/dL (9-23)
[2025-03-04 15:39] LABS: Calcium 10.6 mg/dL (8.7-10.4); Glucose 139 mg/dL (74-106)
[~2025-03-07] VITALS: Ht 160 cm; Wt 74.8 kg
[2025-03-07] VITALS (8 sets, daily range): BP systolic 116–183; BP diastolic 74–86; PULSE 66–96; RESP 15–18; TEMP 98.1; O2SAT 94–99
[~2025-03-07 07:02] MED LIST changes: -AML5T PO; -ASPI1TAB20 PO; -GABA-1250 PO; +POM EACHEYE; -PRAS10TA8 PO; -TIOT1AER IN; +TIOT1AER NEB
[2025-03-07] MEDS ORDERED: ANGIOMAX 250 MG VIAL IV ONE (08:28)
[2025-03-07] MEDS ORDERED: fentaNYL CITRATE 100 MCG/2 ML VL ONE (08:28)
[2025-03-07] MEDS ORDERED: MIDAZOLAM HCL 2MG/2ML 2ml VIAL (1mg/ml) ONE (08:29)
[2025-03-07] MEDS ORDERED: LIDOCAINE 2%HCL (LOCAL ANESTH.) INJ 20ML MDV ONE (08:29)
[2025-03-07] MEDS ORDERED: IOHEXOL 350 MG/ML 100ML IJ ONE ×3 (08:33→09:46)
[2025-03-07] MEDS ORDERED: HEPARIN IN NS 1000Units/500mL 1,500 ML ONE (08:33)
[2025-03-07] MEDS ORDERED: NITROGLYCERIN 0.4MG/DOSE SPRAY 4.9GM ONE (09:57)
[2025-03-07] MEDS ORDERED: CLOPIDOGREL BISULFATE 75 MG TAB ONE (10:05)
--- NOTE | 2025-03-07 10:18 | DVHDS ---
DATE OF DISCHARGE: 03/07/2025 DISCHARGE DIAGNOSIS: The patient underwent successful angioplasty with stent placement of the proximal left anterior descending artery extending into the left main. Three sequential stents were placed. Similarly, 3 sequential stents were placed into the proximal circumflex extending into the left main, now with less than 10% residual throughout the anatomy. The patient is now completely revascularized, but he is high risk for recurrence because of diabetes, hypertension, and just labile and hyperlipidemia. The patient needs to be aggressively risk modified. Hypertension and blood sugar needs to be controlled and the patient needs to go on a strict diet as well. We will continue to follow the patient. Overall prognosis, however, is poor because of the complicated nature of his coronary anatomy. If there is a reoccurrence of symptoms, he may be a candidate for bypass surgery. Stable at the time of discharge. DISPOSITION: Home. ACTIVITY: As instructed. DIET: A 2 gram sodium diet. Sumit Browning MD SA/MONICA TID: [id number] RECEIPT: [id number]
--- NOTE | 2025-03-07 11:11 | DVHOP ---
DATE OF SURGERY: 03/07/2025 PROCEDURES PERFORMED: * Selective left and right coronary angiography. * Attempted angioplasty of the distal posterior descending artery. We had to have a balloon delivered but we did not inflate the balloon because it did not reach the target lesion. It is a small caliber vessel less than 2 mm in diameter. * Angioplasty with stent placement of the proximal left anterior descending artery. * Angioplasty with stent placement of the proximal circumflex. * Angioplasty with stent placement of the LAD and circumflex into the left main. * Angioplasty with stent placement of the circumflex and LAD. Again, a larger stent into the left main. * Conscious sedation. * Shockwave thrombectomy of the LAD, circumflex, and left main with a 2.5 mm x 12 mm Shockwave thrombectomy catheter. * FFR of the circumflex artery. Results of the FFR 0.77 of the proximal circumflex. DESCRIPTION OF PROCEDURE: * The patient was prepped and draped under sterile condition. Xylocaine 1% used to anesthetize the right groin. Using Cook needle, the right femoral artery was engaged with Seldinger technique, a 6-Hungarian sheath right femoral artery. Using 6-Hungarian JL4 catheter and a 6-Hungarian JR4 catheter, selective left and right coronary angiographies were performed. Using a 6-Hungarian JR4 guide catheter, the RCA was cannulated and using a Runthrough wire, the lesion was then crossed. The balloon, however, did not reach the target and therefore, the procedure was terminated because even though there was a 95% narrowing of the distal PDA, it is a small caliber vessel, it is extremely distal to the PDA. Therefore, it is best left alone. medical management should be implemented. * Angioplasty the patient had left main had a 90% narrowing. Left anterior descending approximately had a 90% narrowing. Previous stent was patent in the proximal segment and proximal circumflex also had 90% narrowing. Three sequential stents were placed in the LAD and in the circumflex, each extending into the left main. In the LAD is 2.5 x 18, 2.5 x 12, and a 3.0 x 8 mm stent. * Angioplasty: The circumflex artery similarly had a 2.5 x 18 followed by a 2.5 x 12 followed by a 3.0 x 8 mm stent from the mid circumflex into the left main. All the stents were deployed at 14 atmospheres, following thrombectomy with a 2.5 mm catheters, both of the LAD, circumflex, and the left main. There were no complications. The patient tolerated the procedure well. Total stents deployed were six, three in the LAD and left main, and three in the circumflex extending into the left main. Thus, the patient with greater than 90% narrowing of the proximal LAD and the left main and 90% narrowing of the proximal circumflex and the left main. Had three sequential stents placed into each artery of the LAD and circumflex extending into the left main. At this time, post angioplasty and stent placement less than 10% residual stenosis. We will continue to follow the patient. Sumit Browning MD SA/KEVIN/LORENA TID: [id number] RECEIPT: [id number]
[2025-03-07] MEDS ORDERED: INSU100I28 SUBCUT (12:24)
--- NOTE | 2025-03-12 06:11 | DVHHP ---
ADMIT DATE: 03/07/2025 HISTORY OF PRESENT ILLNESS: The patient is a 69-year-old with history of: * Diabetes, diabetic neuropathy, vasculopathy, nephropathy. * History of accelerated hypertension. * Chronic osteoarthritis. * History of coronary artery disease, status post angioplasty, stent placement of the left anterior descending artery and angioplasty with stent placement of the right coronary artery. The patient is now having ongoing chest pain. He had underwent stress test that shows extensive inferior as well as anterior wall reversibility and because of the above presentation, it was felt that the patient should undergo coronary angiography. Risks and benefits were explained to the patient. The patient denies any fever, chills, melena, hematochezia, hematemesis, hemoptysis, or hematuria. The patient denies any inflammatory bowel disease or irritable bowel syndrome, denies any history of congestive heart failure, but he does have diastolic dysfunction, however, because of marked elevation in blood pressure and labile blood pressure, he is now having ongoing chest pain, even with minimal exertion and because of the above presentation, it was felt that the patient should undergo coronary angiography to define coronary. Risks and benefits were explained to the patient. He has diabetes and all the classic manifestation of diabetes. However, he has severe neuropathy, but no nephropathy at this time. Urine is negative except for trace proteinuria. PHYSICAL EXAMINATION: VITAL SIGNS: Blood pressure is 172/80, pulse of 70, O2 saturation 98% on room air. HEENT: Pupils are reactive. Funduscopic exam shows some AV nicking, some exudates. Sclerae anicteric. No papilledema noted. NECK: No JVD appreciated. Carotid pulses are 2+ and symmetrical. Oral mucosa moist. Posterior pharynx without any exudate. No cervical adenopathy. No supraclavicular adenopathy. Carotids are 2+ and symmetrical. Normal upstroke. PULMONARY: Clear to auscultation, tympanic to percussion. CARDIOVASCULAR: Regular rate. PMI is not displaced. ABDOMEN: Soft, nontender. Normal bowel sounds. EXTREMITIES: 1+ edema, 1+ pulses bilaterally. NEUROLOGIC: The patient is intact. ASSESSMENT AND PLAN: Thus, the patient with sign and symptom complex of angina, has high risk for coronary artery disease because of poorly controlled diabetes, hypertension, hyperlipidemia, as well as history of previous coronary angioplasty with stent placement of the left anterior descending artery and circumflex. The patient now to undergo coronary angiography. Further recommendations after the angiogram. Sumit Browning MD SA/BRYANT TID: [id number] RECEIPT: [id number]
== END 2025-03-07 13:50 | disposition home or self-care (01) ==
LOC: CATH 07:02
PROVIDERS: ATTEND Internal Medicine Cardiovascular Disease
DX: I25.10 Atherosclerotic heart disease of native coronary artery without angina pectoris (principal); I10 Essential (primary) hypertension; J44.9 Chronic obstructive pulmonary disease, unspecified; E11.9 Type 2 diabetes mellitus without complications; E78.5 Hyperlipidemia, unspecified; F12.90 Cannabis use, unspecified, uncomplicated; F41.9 Anxiety disorder, unspecified; Z79.4 Long term (current) use of insulin; Z79.82 Long term (current) use of aspirin; Z79.899 Other long term (current) drug therapy; Z95.5 Presence of coronary angioplasty implant and graft; Z87.891 Personal history of nicotine dependence; Z83.3 Family history of diabetes mellitus; Z82.49 Family history of ischemic heart disease and other diseases of the circulatory system
CPT/HCPCS: 0523T; 36415; 80048; 85025; 85610; 85730; 92972; 92973; 93458; C1725; C1760; C1769; C1874; C1887; C1894; C9600; J0583; J1644; J2250; J3010; Q9967; 99152; 99153

== ENCOUNTER → 2025-03-22 | Outpatient (CLI) | payer BC, MEDICARE ==
[~2025-03-22] MED LIST changes: +INSU100I28 SUBCUT; -POM; -POM PO
== END | disposition home or self-care (01) ==
LOC: Rad HDHVI 10:39
PROVIDERS: ATTEND Internal Medicine Cardiovascular Disease
DX: I08.0 Rheumatic disorders of both mitral and aortic valves (principal); I10 Essential (primary) hypertension
CPT/HCPCS: 93306